=== PATIENT | male | born 1980 | race Hispanic/Latino ===

== ENCOUNTER 2019-11-23 07:17 | Emergency (ER) | payer BC, OTHER ==
[2019-11-23] MEDS ORDERED: Ketorolac Tromethamine 60 MG/2 ML VIAL ONE (07:45)
[2019-11-23 07:48] LABS: Bilirubin Negative (Negative); Blood, Urine Negative (Negative); Clarity Clear (Clear); Glucose, Urine (Dipstick) 500 mg/dL (Negative); Leukocyte Negative (Negative); Nitrite Negative (Negative); Protein, Urine (Dipstick) Negative (Neg-Trace); Urobilinogen 0.2 mg/dL (Less than 2)
== END 2019-11-23 08:00 | disposition home or self-care (01) ==
LOC: BURERS 07:17
DX: M54.5 Low back pain (principal); F17.210 Nicotine dependence, cigarettes, uncomplicated
CPT/HCPCS: 81003; 96372; 99283; J1885